=== PATIENT | male | born 1945 | race Caucasian/White ===

== ENCOUNTER → 2022-05-28 07:29 | Outpatient (BNVA) | payer MEDICARE, BC, SELFPAY | PROVIDERS: Family Provider Family Medicine; PCP Family Medicine; Visit Provider Nurse Practitioner Family | DX: N20.0 Calculus of kidney (principal); R33.9 Retention of urine, unspecified | CPT/HCPCS: 99213 ==

== ENCOUNTER 2022-07-04 13:23 | Outpatient (CLI) | payer MEDICARE, BC, SELFPAY ==
--- NOTE | 2022-07-04 13:25 | XR_ITS ---
WS: [id number], AP view, 07/04/2022 Clinical Data: STONE Comparison: None. Findings: No abnormal intraabdominal masses are seen. There is no dilatated small bowel or evidence of obstruct ion. There may be a small calcification overlying the inferior pole of the right kidney. There are phlebol iths in the true pelvis. There is minimal fecal material in the colon. XR/XR KUB [id number] Impression: Possible small right renal calcification.
== END 2022-07-04 13:24 | disposition home or self-care (01) ==
LOC: RAD 13:24
PROVIDERS: PCP Family Medicine; Visit Provider Nurse Practitioner Family
DX: N20.0 Calculus of kidney (principal); R33.9 Retention of urine, unspecified
CPT/HCPCS: 51728; 51784; 74018

== ENCOUNTER → 2022-11-06 14:33 | Outpatient (BNVA) | payer MEDICARE, BC, SELFPAY | PROVIDERS: PCP Family Medicine; Visit Provider Urology | DX: N20.0 Calculus of kidney (principal); R33.9 Retention of urine, unspecified | CPT/HCPCS: 81003; 99213 ==